=== PATIENT | female | born 1960 | race Caucasian/White ===

== ENCOUNTER 2025-01-20 07:52 | Day surgery (SDC) | payer OTHER ==
[~2025-01-20] VITALS: Ht 167.6 cm; Wt 97.5 kg
[~2025-01-20 07:52] MED LIST: Lactated Ringer's 1,000 ML IV ONE; propofoL 50 ML IV ONE
[2025-01-20] MEDS ORDERED: LISI20 PO (08:29)
[2025-01-20] MEDS ORDERED: Aspir 8181 MG PO (08:30)
[2025-01-20] MEDS ORDERED: LETROZOLE2.5 M1 PO (08:31)
[2025-01-20] MEDS ORDERED: Phentermine HCl15 MG PO (08:32)
[2025-01-20] MEDS ORDERED: Lactated Ringer's 1,000 ML IV ONE (10:12)
[2025-01-20 11:47] VITALS: BP 120/81
== END 2025-01-20 11:46 | disposition home or self-care (01) ==
LOC: ORSCSDS 07:52
PROVIDERS: Surgery
PROC: 0DB48ZX Excision of Esophagogastric Junction, Via Natural or Artificial Opening Endoscopic, Diagnostic (ICD-10-PCS; principal; 2025-01-20 09:15)
PROC: 0DB68ZX Excision of Stomach, Via Natural or Artificial Opening Endoscopic, Diagnostic (ICD-10-PCS; principal; 2025-01-20 09:15)
PROC: 0DJD8ZZ Inspection of Lower Intestinal Tract, Via Natural or Artificial Opening Endoscopic (ICD-10-PCS; principal; 2025-01-20 09:15)
DX: R10.9 Unspecified abdominal pain (principal); R19.4 Change in bowel habit; K21.9 Gastro-esophageal reflux disease without esophagitis; K29.70 Gastritis, unspecified, without bleeding; K44.9 Diaphragmatic hernia without obstruction or gangrene; K57.30 Diverticulosis of large intestine without perforation or abscess without bleeding; I10 Essential (primary) hypertension; Z87.891 Personal history of nicotine dependence; Z79.899 Other long term (current) drug therapy
CPT/HCPCS: 88305; 88342; J2704; J7120

== ENCOUNTER → 2025-03-27 | Outpatient (CLI) | payer OTHER ==
[~2025-03-27] MED LIST changes: +Aspir 8181 MG PO; +LETROZOLE2.5 M1 PO; +LISI20 PO; -Lactated Ringer's 1,000 ML IV ONE; +Phentermine HCl15 MG PO; -propofoL 50 ML IV ONE
[2025-03-27 10:39] LABS: BASOPHILS ABSOLUTE AUTO 0.08 K/mm3 (0.00-0.23); BASOPHILS PERCENT AUTO 2 % (0-2); EOSINOPHILS PERCENT AUTO 4 % (0-6); Hematocrit 42.6 % (33.0-51.0); Hemoglobin 14.1 g/dL (11.5-16.0); IMMATURE GRAN ABSOLUTE AUTO 0.01 K/mm3 (0.00-0.10); IMMATURE GRAN PERCENT AUTO 0 % (0-1); LYMPHOCYTES ABSOLUTE AUTO 1.02 K/mm3 (0.84-5.20); LYMPHOCYTES PERCENT AUTO 19 % (21-46); MONOCYTES ABSOLUTE AUTO 0.38 K/mm3 (0.16-1.47); MONOCYTES PERCENT AUTO 7 % (4-13); Mean Corpuscular HGB 30.9 pg (26.0-34.0); Mean Corpuscular HGB Conc 33.1 g/dL (31.5-36.5); Mean Corpuscular Volume 93 fL (80-100); Mean Platelet Volume 9.1 fL (9.1-12.4); NEUTROPHILS PERCENT AUTO 68 % (41-73); Platelet Count 415 K/mm3 (150-400); RDW Coefficient Variation 13.5 % (11.7-14.2); Red Blood Cell Count 4.56 M/mm3 (3.80-5.20); White Blood Cell Count 5.29 K/mm3 (4.00-11.30)
[2025-03-27 10:51] LABS: Albumin, Blood 3.7 g/dL (3.4-5.0); Bilirubin, Total 0.5 mg/dL (0.1-1.0); Bun/Creatinine Ratio 8.7 (12.0-20.0); Calcium, Blood 9.6 mg/dL (8.5-10.1); Creatinine, Blood 1.38 mg/dL (0.40-1.00); Globulin, Blood 3.7 g/dL (2.2-4.0); Potassium, Blood 4.1 mmol/L (3.5-5.5); Total Protein, Blood 7.4 g/dL (6.4-8.2)
== END ==
LOC: LAB SHORT 10:34 → LAB 10:34
PROVIDERS: Emergency Medicine
DX: R31.9 Hematuria, unspecified (principal); R35.0 Frequency of micturition
CPT/HCPCS: 80053; 85025; 87077; 87086; 87186

== ENCOUNTER → 2025-03-30 | Outpatient (CLI) | payer OTHER ==
[2025-03-30 14:57] LABS: Albumin, Blood 3.9 g/dL (3.4-5.0); Anion Gap 8 mmol/L (3-11); Blood Urea Nitrogen 17 mg/dL (8-24); Bun/Creatinine Ratio 15.6 (12.0-20.0); CO2, Blood 27 mmol/L (21-32); Calcium, Blood 9.4 mg/dL (8.5-10.1); Chloride, Blood 100 mmol/L (98-108); Creatinine, Blood 1.09 mg/dL (0.40-1.00); Glomerular Filtration Rate 56 (60-); Glucose, Blood 118 mg/dL (70-99); Phosphorus, Blood 2.3 mg/dL (2.5-4.9); Sodium, Blood 131 mmol/L (136-145)
== END ==
LOC: LAB SHORT 13:36 → LAB 13:36
PROVIDERS: Family Medicine
DX: N39.0 Urinary tract infection, site not specified (principal); N28.9 Disorder of kidney and ureter, unspecified
CPT/HCPCS: 80069; 87077; 87086; 87186

== ENCOUNTER 2025-08-08 16:56 | Observation (INO) | payer OTHER ==
[~2025-08-08] VITALS: Ht 167.6 cm; Wt 87.0 kg
[~2025-08-08 16:56] MED LIST changes: -CHLO25B PO; -LOPE2C PO
[2025-08-08] MEDS ORDERED: Ondansetron HCl 2 MG / ML 2ML Vial IV PRN (18:00)
[2025-08-08] MEDS ORDERED: Metoclopramide HCl 5MG / ML 2ML Vial IV PRN (18:00)
[2025-08-08] MEDS ORDERED: FLU VACC TS2025-26(6MOS UP)/PF 45 MCG/0.5 ML SYRINGE IM SCH (18:00)
[2025-08-08 19:08] LABS: CORONAVIRUS COVID-19 AG Negative (NEGATIVE)
[2025-08-08 20:56] LABS: Source, Urine Clean Catch
[2025-08-08 21:00] LABS: Bilirubin, Urine Neg (Neg); Glucose Qualitative, Urine 1+ (Neg); Ketones, Urine Neg (Neg); Leukocyte Esterase, Urine Neg (Neg); Protein, Urine Neg (Neg); Specific Gravity, Urine 1.010 (1.003-1.022); Urobilinogen, Urine NORM (Normal)
[2025-08-08] MEDS ORDERED: Heparin Sodium,Porcine 5,000 UNIT/0.5 ML SDV SC SCH (21:00)
[2025-08-08 21:04] VITALS: BP 132/84
[2025-08-08 21:05] LABS: Color, Urine Pale Yellow (P-Yellow)
[2025-08-08] MEDS ORDERED: CHLO25B PO (21:09)
[2025-08-08 21:10] LABS: U Amphetamine Screen DETECTED; U Barbituate Screen Not Detected; U Benzodiazapine Screen Not Detected; U Buprenorphine Screen Not Detected; U Cannabinoids Screen Not Detected; U Cocaine Screen Not Detected; U Methadone Screen Not Detected; U Methamphetamine Screen Not Detected; U Opiates Screen Not Detected; U Oxycodone Screen Not Detected; U Phencyclidine Screen Not Detected
[2025-08-08 23:03] VITALS: BP 135/84
--- NOTE | 2025-08-09 03:42 | NUR ---
SHIFT SUMMARY: AOX4. PT DID COMPLAIN OF GAS AND BELCHING, ENCOURAGED FLUID INTAKE. DENIES ABDOMINAL PAIN, NAUSEA, VOMITING AT THIS TIME. PT STATED HAVING 2 BOUTS OF DIARRHEA SINCE ARRIVING TO UNIT, BUT THIS IS AN IMPROVEMENT FROM THE PREVIOUS NIGHT. PT STATED THAT THE PREVIOUS NIGHT PT HAD 14 EPISODES OF DIARRHEA. CALL LIGHT IS WITHIN REACH. BED IS LOW AND LOCKED.
[2025-08-09 03:43] VITALS: BP 131/74
[2025-08-09 06:05] LABS: Hematocrit 37.5 % (33.0-51.0); Hemoglobin 12.5 g/dL (11.5-16.0); Mean Corpuscular HGB Conc 33.3 g/dL (31.5-36.5); Mean Corpuscular Volume 94 fL (80-100); NRBC ABSOLUTE 0.00 K/mm3 (0.00-0.02); NRBC Auto 0.0 /100 WBC (0.0-0.2); Platelet Count 390 K/mm3 (150-400); RDW Coefficient Variation 13.7 % (11.7-14.2); RDW Standard Deviation 47.3 fL (35.1-46.3)
[2025-08-09 06:40] LABS: Anion Gap 9.0 mmol/L (3-11); Blood Urea Nitrogen 29.0 mg/dL (8-24); CO2, Blood 23.0 mmol/L (21-32); Calcium, Blood 9.0 mg/dL (8.5-10.1); Chloride, Blood 108.0 mmol/L (98-108); Creatinine, Blood 1.73 mg/dL (0.40-1.00); Glucose, Blood 95.0 mg/dL (70-99); Magnesium, Blood 1.7 mg/dL (1.6-2.4); Potassium, Blood 3.6 mmol/L (3.5-5.5); Sodium, Blood 136.0 mmol/L (136-145)
[2025-08-09 07:06] VITALS: BP 131/72
[2025-08-09 11:23] VITALS: BP 137/75
[2025-08-09] MEDS ORDERED: LOPE2C PO (11:44)
--- NOTE | 2025-08-09 12:11 | NUR ---
DISCHARGE INSTRUCTIONS REVIEWED WITH PATIENT AND PATIENT VERBALIZES UNDERSTANDING OF. PT SELF AMBULATEDOUT OF ROOM PER HER REQUEST
--- NOTE | 2025-08-09 12:57 | NUR ---
DISCHARGE SUMMARY PATIENT DISCHARGED HOME WITH S/O TO DRIVE. IV REMOVED WITHOUT COMPLICATION. EATING AND DRINKING WELL THIS SHIFT. DISCHARGE PACKET GIVEN AND REVIEWED, QUESTIONS ANSWERED, VERBALIZED UNDERSTANDING. PREFERRED TO [facility] RATHER THAN SCRIPT, WAS NOT SENT TO PHARMACY PER PT REQUEST.
== END 2025-08-09 12:04 | disposition home or self-care (01) ==
LOC: ER 16:56 → MEDS 16:57
PROVIDERS: Nurse Practitioner Acute Care; Student in an Organized Health Care Education/Training Program; ADMIT Internal Medicine
DX: I12.9 Hypertensive chronic kidney disease with stage 1 through stage 4 chronic kidney disease, or unspecified chronic kidney disease (principal); E11.22 Type 2 diabetes mellitus with diabetic chronic kidney disease; N18.9 Chronic kidney disease, unspecified; N17.9 Acute kidney failure, unspecified; E78.5 Hyperlipidemia, unspecified; I95.9 Hypotension, unspecified; E86.0 Dehydration; E87.1 Hypo-osmolality and hyponatremia; E83.52 Hypercalcemia; E11.65 Type 2 diabetes mellitus with hyperglycemia; J06.9 Acute upper respiratory infection, unspecified; R19.7 Diarrhea, unspecified; Z87.891 Personal history of nicotine dependence; Z79.811 Long term (current) use of aromatase inhibitors; Z79.82 Long term (current) use of aspirin; Z79.899 Other long term (current) drug therapy; R11.0 Nausea
CPT/HCPCS: 36415; 80048; 80053; 81003; 83690; 83735; 85025; 85027; 87428-QW; 93005; 93010; 96372; 99285-25; A9270; G0378; J1644; J7120

== ENCOUNTER → 2025-08-08 | Outpatient (CLI) | payer OTHER ==
[~2025-08-08] MED LIST changes: +CHLO25B PO; +LOPE2C PO
[2025-08-08 16:02] LABS: BASOPHILS ABSOLUTE AUTO 0.07 K/mm3 (0.00-0.23); BASOPHILS PERCENT AUTO 1 % (0-2); EOSINOPHILS ABSOLUTE AUTO 0.11 K/mm3 (0.00-0.68); EOSINOPHILS PERCENT AUTO 1 % (0-6); Hematocrit 43.4 % (33.0-51.0); Hemoglobin 14.8 g/dL (11.5-16.0); IMMATURE GRAN ABSOLUTE AUTO 0.06 K/mm3 (0.00-0.10); IMMATURE GRAN PERCENT AUTO 1 % (0-1); LYMPHOCYTES ABSOLUTE AUTO 1.41 K/mm3 (0.84-5.20); LYMPHOCYTES PERCENT AUTO 14 % (21-46); MONOCYTES ABSOLUTE AUTO 0.58 K/mm3 (0.16-1.47); MONOCYTES PERCENT AUTO 6 % (4-13); Mean Corpuscular HGB Conc 34.1 g/dL (31.5-36.5); Mean Corpuscular Volume 92 fL (80-100); NEUTROPHILS ABSOLUTE AUTO 8.20 K/mm3 (1.96-9.15); NEUTROPHILS PERCENT AUTO 79 % (41-73); NRBC ABSOLUTE 0.00 K/mm3 (0.00-0.02); NRBC Auto 0.0 /100 WBC (0.0-0.2); Platelet Count 493 K/mm3 (150-400); RDW Coefficient Variation 13.7 % (11.7-14.2); RDW Standard Deviation 46.4 fL (35.1-46.3)
[2025-08-08 16:11] LABS: Alanine Aminotransfer (ALT/SGP 42.0 U/L (12-78); Albumin, Blood 3.9 g/dL (3.4-5.0); Albumin/Globulin Ratio 1.0 (0.8-1.8); Anion Gap 17.0 mmol/L (3-11); Aspartate Aminotrans (AST/SGOT 29.0 U/L (12-37); Bilirubin, Total 0.5 mg/dL (0.1-1.0); Blood Urea Nitrogen 40.0 mg/dL (8-24); CO2, Blood 21.0 mmol/L (21-32); Calcium, Blood 10.3 mg/dL (8.5-10.1); Chloride, Blood 100.0 mmol/L (98-108); Creatinine, Blood 2.71 mg/dL (0.40-1.00); Globulin, Blood 4.0 g/dL (2.2-4.0); Glucose, Blood 156.0 mg/dL (70-99); Magnesium, Blood 1.8 mg/dL (1.6-2.4); Potassium, Blood 4.2 mmol/L (3.5-5.5); Sodium, Blood 134.0 mmol/L (136-145); Total Protein, Blood 7.9 g/dL (6.4-8.2)
== END ==
LOC: LAB 15:55 → LAB SHORT 15:55
PROVIDERS: Emergency Medicine
DX: R11.0 Nausea (principal); R19.7 Diarrhea, unspecified
CPT/HCPCS: 80053; 83690; 83735; 85025